=== PATIENT | male | born 1955 | race Caucasian/White ===

== ENCOUNTER 2020-09-09 06:51 | Outpatient (NON) | payer OTHER, SELFPAY ==
[2020-09-09 17:23] LABS: SARS-CoV-2 RNA PCR Positive
== END 2020-09-09 06:52 ==
PROVIDERS: PCP Family Medicine; Visit Provider Family Medicine
DX: U07.1 COVID-19 (principal)
CPT/HCPCS: 87635; C9803; U0003

== ENCOUNTER 2024-09-29 10:16 | Outpatient (CLI) | payer MEDICARE, OTHER, SELFPAY ==
--- NOTE | ~2024-09-29 | XR_ITS ---
XR wrist RT 2V Ordering provider: Jimena Gonzalez PA-C History: . injury 4 years ago pain across all metacarpals . Comparison: None. FINDINGS: BONES: No acute fracture or dislocation. No definite scaphoid fracture. JOINT SPACES: Mild osteoarthritic changes of the first carpometacarpal joint. SOFT TISSUES: Normal. IMPRESSION: No acute osseous abnormality right wrist. Reviewed, dictated and finalized at location A. BORER
--- NOTE | ~2024-09-29 | XR_ITS ---
XR hand RT 2V Ordering provider: Jimena Gonzalez PA-C History: . injury 4 years ago pain across all metacarpals . Comparison: None. FINDINGS: BONES: No acute fracture or dislocation. JOINT SPACES: Normal. SOFT TISSUES: Normal. IMPRESSION: No acute osseous abnormality right hand. Reviewed, dictated and finalized at location A. EHAND
== END 2024-09-29 10:17 | disposition home or self-care (01) ==
PROVIDERS: PCP Family Medicine; Visit Provider Student in an Organized Health Care Education/Training Program
DX: M25.531 Pain in right wrist (principal); M25.541 Pain in joints of right hand
CPT/HCPCS: 73100; 73120

== ENCOUNTER 2024-10-19 10:24 | Outpatient (CLI) | payer MEDICARE, OTHER, SELFPAY ==
--- NOTE | ~2024-10-19 | XR_ITS ---
Supine and upright views of the abdomen Clinical history: Abdominal pain, history kidney stone Findings: Bowel gas pattern is nonspecific. No evidence for obstruction or free air. Prominent stool noted. 2 roughly symmetrical ovoid densities in left upper quadrant may be ingested material. No adrianne l stones evident Impression: Constipation. 2 relatively dense cylindrical structures in the left upper quadrant could reflect ingested material. Correlate for any possible foreign body ingestion. Reviewed, dictated and finalized at location M. 3RD PRESSMAN Impression: Constipation. 2 relatively dense cylindrical structures in the left upper quadrant could refl ect ingested material. Correlate for any possible foreign body ingestion.
--- OUTSIDE RECORDS SUMMARY | 2024-10-23 22:54 | XMS_ITS | Encounter Summary ---
Author Organization [facility] Address [address] [place] [address]. [place] [address] [place] [address] Care Team Providers Care Paper Cap Machine Operator Name Role Phone Tin Chan MD Primary Care Provider [phone] Reason for Visit * Auth/Cert Specialty Diagnoses / Procedures Referred By Poonam andrade Referred To Contact Diagnoses Cataract h25.12 Procedures REMV CATARACT EXTRACAP,INSERT LENS CATARACT REMOVAL WITH IOL IMPLANT Referral ID Status Reason Start Date Expiration Date Visits Re quested Visits Authorized [id number] 1 1 Encounter Details Date Type Department Care Team (Latest Contact Info) Description 10/03/2021 8:03 AM TOXICOLOGIST - 10/03/2021 9:56 AM TOXICOLOGIST Hospital Encounter [facility] [address] [place] [address] Art Bledsoe MD [address] [facility] [address] [id number] Discharge Disposition: Home or Self Care (Routine Discharge) Social History Tobacco Use Types Packs/Day Years Used Date Smoking Tobacco: Former Smokeless Tobacco: Never Alcohol Use Standard Drinks/Week Comments Not Currently 0 (1 standard drink = 0.6 oz pur e alcohol) Sex and Gender Information Value Date Recorded Sex Assigned at Not on file Legal Sex Male 2:59 PM TOXICOLOGIST Gender Identity Not on file Sexual Orientation Not on file COVID-19 Exposure Response Date Recorded In the last month, have you been in contact with someone who was confirmed or suspected to have Coronavirus / COVID-19? No / Unsure 10/03/2021 8:11 AM TOXICOLOGIST documented as of this encounter Last Filed Vital Signs Vital Sign Reading Time Taken Comments Blood Pressure 114/72 10/03/2021 9:39 AM TOXICOLOGIST Pulse 73 10/03/2021 9:39 AM TOXICOLOGIST Temperature 35.9 ??C (96.7 ??F) 10/03/2021 9:39 AM CS T Respiratory Rate 18 10/03/2021 9:39 AM TOXICOLOGIST Oxygen Saturation 95% 10/03/2021 9:39 AM TOXICOLOGIST Inhaled Oxygen Concentration - - Weight 113.4 kg (250 lb) 10/03/2021 8:32 AM TOXICOLOGIST Height 188 cm (6' 2 ) 10/03/2021 8:32 AM TOXICOLOGIST Body Mass Index 32.1 10/03/2021 8:32 AM TOXICOLOGIST documented in this encounter Discharge Instructions * Discharge Instructions* Ramiro Domingo RN - 10/03/2021 9:31 AM TOXICOLOGIST [facility] POST-OP INSTRUCTIONS FOLLOWING CATARACT SURGERY 1. You will be sent home from surgery with a patch over your eye. DO NOT REMOVE THE PATCH FOR ANY REASON. Dr. Bledsoe will remove the patch at your 1st Post-Op (The day of surgery or the next day) and instruct you on how to use your eye drops. 2. SLEEP ON YOUR BACK OR EITHER SIDE. The night after surgery DO NOT SLEEP FACE DOWN . 3. DO NOT RUB OR PRESS ON YOUR EYE. Blot underneath or at the corner of your eye. 4. PROTECT YOUR EYE WHEN YOU NAP DURING THE DAY OR SLEEP AT NIGHT FOR 10 DAYS FOLLOWING SURGERY. Use the clear plastic shield (found in your surgery kit). Place the shield over the eye with paper tape across it to hold the shield in place. 5. LIMIT BENDING MUCH POSSIBLE AND KEEP HEAD FROM A DEPENDENT POSITION. Instead, bend your knees. You may want to hold onto a chair etc. To help keep your balance. 6. DO NOT LIFT ANYTHING OVER 20 POUNDS FOR 2 WEEKS. 7. DO NOT DO ANY STRENUOUS WORK OR EXERCISE FOR 2 WEEKS. For example: Where you strain or break a sweat. 8. DO NOT GET SOAP IN YOUR EYES. When you shower and shampoo. 9. DO NOT WEAR EYE MAKEUP OR USE CREAMS OR LOTIONS around your eyes for 2 weeks. 10. YOU MAY DRIVE WHEN YOUR VISION PERMITS. Ask you doctor. You must have a bookmobile driver for the day of surgery and your 1st post op exam. 11. ALWAYS WERE SUNGLASSES WHEN YOU GO OUTSIDE. These are found in your surgery kit. Dr. Bledsoe OFFICE [phone] AFTER HOURS EMERGENCY [phone] COLOGIST * Attachments The following attachments cannot be sent through Care Everywhere. * Cataracts Discharge Instructions (Estonian) documented in this encounter Medications at Time of Discharge aspirin EC (ASPIRIN EC) 81 MG tablet Take 81 mg by mouth daily. empagliflozin 25 MG tablet Take 25 mg by mouth daily. insulin glargine 100 UNIT/ML injection (PEN) Inject 20 Units into the skin nightly at bedtime. metFORMIN 1000 MG tablet Take 2,000 mg by mouth daily. omeprazole 10 MG capsule Take 10 mg by mouth daily. semaglutide 2 MG/1.5ML injection (PEN) Inject into the skin every 7 days. documented as of this encounter OR Notes * Op Note - Art Bledsoe MD - 10/03/2021 8:37 AM CST Date: 10/03/2021 Patient Name: Derick Murphy : 1955 Surgeon: ART BLEDSOE M.D. Preoperative Diagnosis: Cataract Left Postoperative Diagnosis: Cataract Left Name of Operation: Cataract Extraction (by Phacoemulsification) and Intraocular Lens Implant Anesthesia: Topical Specimen: None Description of Procedure: The eye was anesthetized with topical 0.75% bupivacaine. After intravenous sedation and placement of monitors, the patient was prepped and draped in the usual sterile manner. A lid speculum was placed. A paracentesis was made, and preservative free 1% lidocaine was instilled in the anterior chamber. The anterior chamber was then filled with Viscoat viscoelastic. A miko keratome was used to create the wound. Continuous tear anterior capsulotomy was performed. The lens was hydro dissected before being removed with phacoemulsification. The remaining lenticular cortexwas removed with aspiration. The capsular bag was polished and filled with viscoelastic material. An intraocular lens was chosen, inspected, irrigated and placed within the capsular bag where it was seen to be centered and stable. The viscoelastic material was aspirated. The wound was closed and found to be watertight. Betadine and antibiotic drops were placed in the eye. The speculum was removed. A Garay shield was applied. The patient tolerated the procedure well and left the operating room in satisfactory condition. Art Bledsoe MD COLOGIST documented in this encounter Plan of Treatment Not on file documented as of this encounter Procedures Procedure Name Priority Date/Time Associated Diagnosis Comments REMV CATARACT EXTRACAP,INSERT LENS 10/03/2021 9:12 AM TOXICOLOGIST Cataract Special Needs 0800 documented in this encounter Visit Diagnoses Not on filedocumented in this encounter Administered Medications Inactive Administered Medications - up to 3 most recent administrations Medication Order MAR Action Action Date Dose Rate Site besifloxacin (BESIVANCE) 0.6 % ophthalmic suspension 1 drop 1 drop, Left Eye, Every 5 min, 3 doses, First dose on Sun10/03/21 at 0845, Last dose on Sun10/03/21 at 0855, Instill to operative eye, Pre-Op Given 10/03/2021 8:49 AM TOXICOLOGIST 1 drop Given 10/03/2021 8:39 AM TOXICOLOGIST 1 drop Given 10/03/2021 8:32 AM TOXICOLOGIST 1 drop BUpivacaine (PF) (MARCAINE) 0.5 % injection 0.1 mL 0.1 mL, Left Eye, Every 5 min, 3 doses, First dose on Sun10/03/21 at 0845, Last dose on Sun10/03/21 at 0855, Instill to operative eye, Pre-Op Given 10/03/2021 8:48 AM TOXICOLOGIST 0.1 mLs Given 10/03/2021 8:38 AM TOXICOLOGIST 0.1 mLs Given 10/03/2021 8:31 AM TOXICOLOGIST 0.1 mLs flurbiprofen (OCUFEN) 0.03 % ophthalmic solution 1 drop 1 drop, Left Eye, Every 5 min, 3 doses, First dose on Sun10/03/21 at 0845, Last dose on Sun10/03/21 at 0855, Instill to operative eye, Pre-Op Given 10/03/2021 8:49 AM TOXICOLOGIST 1 drop Given 10/03/2021 8:39 AM TOXICOLOGIST 1 drop Given 10/03/2021 8:32 AM TOXICOLOGIST 1 drop methazolAMIDE (NEPTAZANE) tablet 50 mg 50 mg, Oral, Once, 1 dose, On Sun10/03/21 at 1000, If NOT allergic to Sulfa, Post-Op Given 10/03/2021 9:49 AM TOXICOLOGIST 50 m g phenylephrine (MYDFRIN) 2.5 % ophthalmic solution 1 drop 1 drop, Left Eye, Every 5 min, 3 doses, First dose on Sun10/03/21 at 0845, Last dose on Sun10/03/21 at 0855, Instill to operative eye, Pre-Op Given 10/03/2021 8:48 AM TOXICOLOGIST 1 drop Given 10/03/2021 8:38 AM TOXICOLOGIST 1 drop Given 10/03/2021 8:32 AM TOXICOLOGIST 1 drop tropicamide (MYDRIACYL) 1 % ophthalmic solution 1 drop 1 drop, Left Eye, Every 5 min, 2 doses, First dose on Sun10/03/21 at 0845, Last dose on Sun10/03/21 at 0850, Instill to operative eye, Pre-Op Given 10/03/2021 8:39 AM TOXICOLOGIST 1 drop Given 10/03/2021 8:32 AM TOXICOLOGIST 1 drop documented in this encounter Active and Recently Administered Medications Times are shown in TOXICOLOGIST. Scheduled Medication Order 10/01/2021 2021 10/03/2021 besifloxacin (BESIVANCE) 0.6 % ophthalmic suspension 1 drop (COMPLETED) 1 drop, Left Eye, Every 5 min, 3 doses, First dose on Sun10/03/21 at 0845, Last dose on Sun10/03/21 at 0855, Instill to operative eye, Pre-Op 0832 (Given - Provid er: Suzette Mobley RN)0839 (Given - Provider: Suzette Mobley RN)0849 (Given - Provider: Suzette Mobley, NAVYA) BUpivacaine (PF) (MARCAINE) 0.5 % injection 0.1 mL (COMPLETED) 0.1 mL, Left Eye, Every 5 min, 3 doses, First dose on Sun10/03/21 at 0845, Last dose on Sun10/03/21 at 0855, Instill to operative eye, Pre-Op 0831 (Given - Provid er: Suzette Mobley RN)0838 (Given - Provider: Suzette Mobley RN)0848 (Given - Provider: Suzette Mobley RN) flurbiprofen (OCUFEN) 0.03 % ophthalmic solution 1 drop (COMPLETED) 1 drop, Left Eye, Every 5 min, 3 doses, First dose on Sun10/03/21 at 0845, Last dose on Sun10/03/21 at 0855, Instill to operative eye, Pre-Op 0832 (Given - Provid er: Suzette Mobley RN)0839 (Given - Provider: Suzette Mobley RN)0849 (Given - Provider: Suzette Mobley RN) methazolAMIDE (NEPTAZANE) tablet 50 mg (COMPLETED) 50 mg, Oral, Once, 1 dose, On Sun10/03/21 at 1000, If NOT allergic to Sulfa, Post-Op 0949 (Given - Provid er: Ramiro Domingo RN) phenylephrine (MYDFRIN) 2.5 % ophthalmic solution 1 drop (COMPLETED) 1 drop, Left Eye, Every 5 min, 3 doses, First dose on Sun10/03/21 at 0845, Last dose on Sun10/03/21 at 0855, Instill to operative eye, Pre-Op 0832 (Given - Provid er: Suzette Mobley RN)0838 (Given - Provider: Suzette Mobley RN)0848 (Given - Provider: Suzette Mobley RN) tropicamide (MYDRIACYL) 1 % ophthalmic solution 1 drop (COMPLETED) 1 drop, Left Eye, Every 5 min, 2 doses, First dose on Sun10/03/21 at 0845, Last dose on Sun10/03/21 at 0850, Instill to operative eye, Pre-Op 0832 (Given - Provid er: Suzette Mobley RN)0839 (Given - Provider: Suzette Mobley RN) PRN Medication Order 10/01/2021 2021 10/03/2021 apraclonidine (IOPIDINE) 0.5 % ophthalmic solution (CANCELED) As needed, Starting on Sun10/03/21 at 0925, Until Sun10/03/21 at 0932, Intra-Op 0925 (Given - Provid er: Art Bledsoe MD) EPINEPHrine 0.3 mg in balanced salts (BSS) irrigation solution (CANCELED) As needed, Starting on Sun10/03/21 at 0925, Until Sun10/03/21 at 0932, Intra-Op 924 (Given - Provid er: Art Bledsoe MD) lidocaine (PF) (XYLOCAINE) 1 % injection (CANCELED) As needed, Starting on Sun10/03/21 at 0925, Until Sun10/03/21 at 0932, Intra-Op 09 (Given - Provid er: Art Bledsoe MD) lidocaine 1%-phenylephrine 1.5% in BSS ophthalmic injection (CANCELED) As needed, Starting on Sun10/03/21 at 0925, Until Sun10/03/21 at 0932, Intra-Op 924 (Given - Provid er: Art Bledsoe MD) moxifloxacin (VIGAMOX) 0.5 % ophthalmic solution (CANCELED) As needed, Starting on Sun10/03/21 at 0925, Until Sun10/03/21 at 0932, Intra-Op 924 (Given - Provid er: Art Bledsoe MD) povidone-iodine (BETADINE) 5 % ophthalmic solution (CANCELED) As needed, Starting on Sun10/03/21 at 0925, Until Sun10/03/21 at 0932, Intra-Op 09 (Given - Provid er: Art Bledsoe MD) documented in this encounter Care Teams Paper Cap Machine Operator Relationship Specialty Start Date End Date Tin Chan MD [address] [place] [address] PCP - General FAMILY PRACTICE 10/03/21 documented as of this encounter
--- OUTSIDE RECORDS SUMMARY | 2024-10-23 22:54 | XMS_ITS | Encounter Summary ---
Author Organization [facility] Address [address] [place] [address]. [place] [address] [place] [address] Care Team Providers Care Salesman/Owner Name Role Phone Tin Chan MD Primary Care Provider [phone] Reason for Visit * Auth/Cert Specialty Diagnoses / Procedures Referred By Poonam t Referred To Contact Diagnoses Cataract h25.12 Procedures REMV CATARACT EXTRACAP,INSERT LENS CATARACT REMOVAL WITH IOL IMPLANT Referral ID Status Reason Start Date Expiration Date Visits Re quested Visits Authorized [id number] 1 1 Encounter Details Date Type Department Care Team (Late st Contact Info) Description 10/03/2021 9:27 AM CRIME PREVENTION WORKER - 10/03/2021 10:06 AM CRIME PREVENTION WORKER Surgery [facility] [address] [place] [address] Art Bledsoe MD [address] [facility] [address] [phone] CATARACT REMOVAL WITH IOL IMPLANT Surgery Details Date/Time Status Location OR Service Patient Class Case Class Case Type Trauma Case? 10/03/2021 9:27 AM Posted [facility] OR OR 2 Ophthalmology Short Stay/Outpa tient Surgery E - Elective No Panel 1 Procedure LRB Anes Op Region Wound Class Comments CATARACT REMOVAL WITH IOL IMPLANT Left Monitor Anesthesia Care Eye Clean Surgeon Surgeon Role Service Panel Art Bledsoe MD Primary Ophthalmology 1 Special Needs 0800 documented in this encounter Social History Tobacco Use Types Packs/Day Years Used Date Smoking Tobacco: Former Smokeless Tobacco: Never Alcohol Use Standard Drinks/Week Comments Not Currently 0 (1 standard drink = 0.6 oz pur e alcohol) Sex and Gender Information Value Date Recorded Sex Assigned at Not on file Legal Sex Male 2:59 PM CRIME PREVENTION WORKER Gender Identity Not on file Sexual Orientation Not on file COVID-19 Exposure Response Date Recorded In the last month, have you been in contact with someone who was confirmed or suspected to have Coronavirus / COVID-19? No / Unsure 10/03/2021 8:11 AM CRIME PREVENTION WORKER documented as of this encounter Last Filed Vital Signs Vital Sign Reading Time Taken Comments Blood Pressure 114/72 10/03/2021 9:39 AM CRIME PREVENTION WORKER Pulse 73 10/03/2021 9:39 AM CRIME PREVENTION WORKER Temperature 35.9 ??C (96.7 ??F) 10/03/2021 9:39 AM CS T Respiratory Rate 18 10/03/2021 9:39 AM CRIME PREVENTION WORKER Oxygen Saturation 95% 10/03/2021 9:39 AM CRIME PREVENTION WORKER Inhaled Oxygen Concentration - - Weight 113.4 kg (250 lb) 10/03/2021 8:32 AM CRIME PREVENTION WORKER Height 188 cm (6' 2 ) 10/03/2021 8:32 AM CRIME PREVENTION WORKER Body Mass Index 32.1 10/03/2021 8:32 AM CRIME PREVENTION WORKER documented in this encounter Discharge Instructions * Discharge Instructions* Ramiro Domingo RN - 10/03/2021 9:31 AM CRIME PREVENTION WORKER Kay [facility] POST-OP INSTRUCTIONS FOLLOWING [...] Ask you doctor. You must have a limb driver for the day of surgery and your 1st post op exam. 11. ALWAYS WERE SUNGLASSES WHEN YOU GO OUTSIDE. These are found in your surgery kit. Dr. Bledsoe OFFICE [phone] AFTER HOURS EMERGENCY [phone] E PREVENTION WORKER * Attachments The following attachments cannot be sent through Care Everywhere. * Cataracts Discharge Instructions (Ghanaian) documented in this encounter Medications at Time [...] AM CST Date: 10/03/2021 Patient Name: Derick Bia Murphy Jr. : 1955 Surgeon: ART BLEDSOE M.D. Preoperative [...] room in satisfactory condition. Art Bledsoe MD E PREVENTION WORKER documented in this encounter Plan of Treatment Not on file documented as of this encounter Procedures Procedure Name Priority Date/Time Associated Diagnosis Comments REMV CATARACT EXTRACAP,INSERT LENS 10/03/2021 9:12 AM CRIME PREVENTION WORKER Cataract Special Needs 0800 documented in this encounter Visit Diagnoses Diagnosis Cataract Unspecified cataract documented in this encounter Administered Medications Inactive Administered Medications - up to 3 most recent administrations Medication Order MAR Action Action Date Dose Rate Site apraclonidine (IOPIDINE) 0.5 % ophthalmic solution As needed, Starting on Sun10/03/21 at 0925, Until Sun10/03/21 at 0932, Intra-Op Given 10/03/2021 9:25 AM CRIME PREVENTION WORKER 1 drop besifloxacin (BESIVANCE) 0.6 % ophthalmic suspension 1 drop 1 drop, Left Eye, Every 5 min, 3 doses, First dose on Sun10/03/21 at 0845, Last dose on Sun10/03/21 at 0855, Instill to operative eye, Pre-Op Given 10/03/2021 8:49 AM CRIME PREVENTION WORKER 1 drop Given 10/03/2021 8:39 AM CRIME PREVENTION WORKER 1 drop Given 10/03/2021 8:32 AM CRIME PREVENTION WORKER 1 drop BUpivacaine (PF) (MARCAINE) 0.5 % injection 0.1 mL 0.1 mL, Left Eye, Every 5 min, 3 doses, First dose on Sun10/03/21 at 0845, Last dose on Sun10/03/21 at 0855, Instill to operative eye, Pre-Op Given 10/03/2021 8:48 AM CRIME PREVENTION WORKER 0.1 mLs Given 10/03/2021 8:38 AM CRIME PREVENTION WORKER 0.1 mLs Given 10/03/2021 8:31 AM CRIME PREVENTION WORKER 0.1 mLs EPINEPHrine 0.3 mg in balanced salts (BSS) irrigation solution As needed, Starting on Sun10/03/21 at 0925, Until Sun10/03/21 at 0932, Intra-Op Given 10/03/2021 9:25 AM CRIME PREVENTION WORKER 500 mLs Left Eye flurbiprofen (OCUFEN) 0.03 % ophthalmic solution 1 drop 1 drop, Left Eye, Every 5 min, 3 doses, First dose on Sun10/03/21 at 0845, Last dose on Sun10/03/21 at 0855, Instill to operative eye, Pre-Op Given 10/03/2021 8:49 AM CRIME PREVENTION WORKER 1 drop Given 10/03/2021 8:39 AM CRIME PREVENTION WORKER 1 drop Given 10/03/2021 8:32 AM CRIME PREVENTION WORKER 1 drop lidocaine (PF) (XYLOCAINE) 1 % injection As needed, Starting on Sun10/03/21 at 0925, Until Sun10/03/21 at 0932, Intra-Op Given 10/03/2021 9:25 AM CRIME PREVENTION WORKER 1 mL Left Eye lidocaine 1%-phenylephrine 1.5% in BSS ophthalmic injection As needed, Starting on Sun10/03/21 at 0925, Until Sun10/03/21 at 0932, Intra-Op Given 10/03/2021 9:25 AM CRIME PREVENTION WORKER 1 mL methazolAMIDE (NEPTAZANE) tablet 50 mg 50 mg, Oral, Once, 1 dose, On Sun10/03/21 at 1000, If NOT allergic to Sulfa, Post-Op Given 10/03/2021 9:49 AM CRIME PREVENTION WORKER 50 mg moxifloxacin (VIGAMOX) 0.5 % ophthalmic solution As needed, Starting on Sun10/03/21 at 0925, Until Sun10/03/21 at 0932, Intra-Op Given 10/03/2021 9:25 AM CRIME PREVENTION WORKER 1 drop phenylephrine (MYDFRIN) 2.5 % ophthalmic solution 1 drop 1 drop, Left Eye, Every 5 min, 3 doses, First dose on Sun10/03/21 at 0845, Last dose on Sun10/03/21 at 0855, Instill to operative eye, Pre-Op Given 10/03/2021 8:48 AM CRIME PREVENTION WORKER 1 fletcher p Given 10/03/2021 8:38 AM CRIME PREVENTION WORKER 1 drop Given 10/03/2021 8:32 AM CRIME PREVENTION WORKER 1 drop povidone-iodine (BETADINE) 5 % ophthalmic solution As needed, Starting on Sun10/03/21 at 0925, Until Sun10/03/21 at 0932, Intra-Op Given 10/03/2021 9:25 AM CRIME PREVENTION WORKER 2 drops tropicamide (MYDRIACYL) 1 % ophthalmic solution 1 drop 1 drop, Left Eye, Every 5 min, 2 doses, First dose on Sun10/03/21 at 0845, Last dose on Sun10/03/21 at 0850, Instill to operative eye, Pre-Op Given 10/03/2021 8:39 AM CRIME PREVENTION WORKER 1 drop Given 10/03/2021 8:32 AM CRIME PREVENTION WORKER 1 drop documented in this encounter Active and Recently Administered Medications Times are shown in CRIME PREVENTION WORKER. Scheduled Medication Order 10/01/2021 2021 10/03/2021 besifloxacin [...] Suzette Mobley RN)0838 (Given - Provider: Suzette Mobley, NAVYA)0848 (Given - Provider: Suzette Mobley, NAVYA) flurbiprofen (OCUFEN) 0.03 % ophthalmic solution 1 [...] MD) documented in this encounter Care Teams Salesman/Owner Relationship Specialty Start Date End Date Tin Chan MD [address] [place] [address] PCP - General FAMILY PRACTICE 10/03/21 documented as of this encounter
--- OUTSIDE RECORDS SUMMARY | 2024-10-23 22:54 | XMS_ITS | Encounter Summary ---
Author Organization [facility] Address [address] [place] [address]. [place] [address] [place] [address] Care Team Providers Care Metal Handler Name Role Phone Tin Chan MD Primary Care Provider [phone] Reason for Visit * Auth/Cert Specialty Diagnoses / Procedures Referred By Poonam andrade Referred To Contact Diagnoses Cataract h25.12 Procedures REMV CATARACT EXTRACAP,INSERT LENS CATARACT REMOVAL WITH IOL IMPLANT Referral ID Status Reason Start Date Expiration Date Visits Re quested Visits Authorized [id number] 1 1 Encounter Details Date Type Department Care Team (Late st Contact Info) Description 10/03/2021 9:10 AM FINANCE MGR Anesthesia Event [facility] [address] [place] [address] Kayla Gutierrez CRNA [address] [place] [address] Anesthesia Record Procedure Summary Procedure Name Responsible Anesthesiologist Anesthesia Start Time Anesthesia Stop Time CATARACT REMOVAL WITH IOL IMPLANT (Left: Eye) Kayla Gutierrez CRNA 10/03/21 0910 10/03/21 0929 Events Date Time Event Comment 10/03/2021 0835 0835 AN PARAPROFESSIONAL EDUCATION ASSISTANT Prepped 0910 An Start Patient ID and consent checked and patient reassessed. 0910 An Start Data 0910 AN Immediate Reassess The pa tient was reevaluated immediately before sedation or regional anesthesia. 0910 Anesthesia Ready 0929 An Stop 0929 an stop data 0930 Post Anesthetic Care Handoff I completed my handoff to the receiving nurse during which we: 1. Identified the patient 2. Identified the responsible provider 3. Reviewed the pertinent medical history 4. Discussed the surgical course 5. Reviewed intra-op anesthesia management and issues during anesthesia 6. Set expectations for post-procedure period 7. Allowed opportunity for questions and acknowledgement of understanding. Meds Name Total midazolam 2 mg/2 mL injection 2 mg * Agents Name O2 * Blood No blood administrations on file. Lines, Drains, and Airways Type Details Placement Removal Peripheral IV Placement Date: 10/03/21; Placement Time: 851; Placed Outside of This Facility?: No; Size: 20 G; Orientation: Right; Location: Hand; Site Prep: Chlorhexidine; Local Anesthetic: None; Inserted By: Suzette MENDOSA; Insertion attempts: 1; Ultrasound-guided Placement?: No; Patient Tolerance: Tolerated well; Removal Date: 10/03/21; Removal Time: 931; Removal Reason: Patient Discharged 10/03/21851 by Suzette Mobley RN 10/03/21931 by Ramiro Domingo RN Surgical/Incision 10/03/21; 921; Surgical Wound; Eye; Left; SHIELD EYE ADULT, TAPE PAPER 1 ; 10/03/21; 1156 10/03/21921 by Karlene Philip RN 10/03/21 115 by Automatic Discharge Provider documented in this encounter Social History Tobacco Use Types Packs/Day Years Used Date Smoking Tobacco: Former Smokeless Tobacco: Never Alcohol Use Standard Drinks/Week Comments Not Currently 0 (1 standard drink = 0.6 oz pur e alcohol) Sex and Gender Information Value Date Recorded Sex Assigned at Not on file Legal Sex Male 2:59 PM FINANCE MGR Gender Identity Not on file Sexual Orientation Not on file COVID-19 Exposure Response Date Recorded In the last month, have you been in contact with someone who was confirmed or suspected to have Coronavirus / COVID-19? No / Unsure 10/03/2021 8:11 AM FINANCE MGR documented as of this encounter OR Notes * Anesthesia Postprocedure Evaluation - Kayla Gutierrez CRNA - 10/03/2021 9:30 AM CST Anesthesia Post-op Note Derick Murphy Jr. Procedure(s): CATARACT REMOVAL WITH IOL IMPLANT (Left Eye) Anesthesia type: MAC Vitals: 10/03/21 08 BP: (!) 155/81 Vitals: 11/29/21 0832 Pulse: 70 Vitals: 10/03/21 0832 Resp: 20 Vitals: 10/03/21 0832 Temp: 36.9 ??C Vitals: 10/03/21 0832 SpO2: 97% Patient Location: Phase II/Outpatient Level of Consciousness: awake, alert and oriented Pain Management: adequate analgesia Airway Patency: patent Respiratory Status: acceptable Cardiovascular Status: acceptable Post-Op Nausea: none Postoperative Hydration: euvolemic There were no known complications for this encounter. NCE MGR * Anesthesia Preprocedure Evaluation - Kayla Gutierrez CRNA - 09/26/2021 11:44 AM CST Anesthesia ROS/MED History Reviewed: Patient summary , Nursing notes , Family history anesthesia, Anesthesia history , Medications Pre-Anesthetic State: alert, awake and responds appropriately Pulmonary (+) sleep apnea Cardiovascular Exercise tolerance:good Neuro/Psych GI/Hepatic/Renal Endo/Other (+) diabetes mellitus, obese Physical Evaluation Airway Mallampati: II TM Distance: >3 FB Neck ROM: normal Dental No notable dental history Pulmonary Breath sounds clear to auscultation Cardiovascular Rhythm: regular Rate: normal Anesthesia Plan ASA 2 Intravenous Induction Anesthesia type: MAC Informed Consent Anesthetic plan and risks discussed with patient of whom consent was obtained. . Cosigned by Art Small MD at 10/03/2021 9:42 AM FINANCE MGR NCE MGR NCE MGR NCE MGR NCE MGR documented in this encounter Plan of Treatment Not on file documented as of this encounter Visit Diagnoses Not on filedocumented in this encounter Administered Medications Inactive Administered Medications - up to 3 most recent administrations Medication Order MAR Action Action Date Dose Rate Site midazolam (VERSED) injection Intravenous, PRN, Starting on Sun10/03/21 at 0910, Until Sun10/03/21 at 0929, Anesthesia Intra-Op Given 10/03/2021 9:14 AM FINANCE MGR 1 mg Given 10/03/2021 9:10 AM FINANCE MGR 1 mg documented in this encounter Care Teams Metal Handler Relationship Specialty Start Date End Date Tin Chan MD [address] [address] [address] [place] [address] PCP - General FAMILY PRACTICE 10/03/21 documented as of this encounter
--- OUTSIDE RECORDS SUMMARY | 2024-10-23 22:54 | XMS_ITS | Encounter Summary ---
Author Organization [facility] Address [address] [place] [address]. [place] [address] [place] [address] Care Team Providers Care Hotel Clerk Name Role Phone Tin Chan MD Primary Care Provider [phone] Reason for Visit * Auth/Cert Specialty Diagnoses / Procedures Referred By Poonam andrade Referred To Contact Diagnoses H25.11 Procedures REMV CATARACT EXTRACAP,INSERT LENS RIGHT CATARACT REMOVAL WITH IOL IMPLANT Referral ID Status Reason Start Date Expiration Date Visits Re quested Visits Authorized [id number] 1 1 Encounter Details Date Type Department Care Team (Late st Contact Info) Description 12/05/2021 7:30 AM FACULTY HEAD Anesthesia Event [facility] [address] [place] [address] Carol Ann Jose CRNA [address] [place] [id number] Tj Page CRNA [address] [place] [address] Anesthesia Record Procedure Summary Procedure Name Responsible Anesthesiologist Anesthesia Start Time Anesthesia Stop Time RIGHT CATARACT REMOVAL WITH IOL IMPLANT (Right: Eye) Carol Ann Jose CRNA 12/05/21 0730 12/05/21 0756 Events Date Time Event Comment 12/05/2021 [address] MAGISTRATE Prepped 0730 An Start Patient ID and consent checked and patient reassessed. 0730 An Start Data 0732 AN Immediate Reassess The pa tient was reevaluated immediately before sedation or regional anesthesia. 0732 Nasal Cannula Applied 0735 Anesthesia Ready 0755 Nasal Cannula Removed 0756 an stop data 0756 An Stop 0756 Post Anesthetic Care Handoff I completed my handoff to the receiving nurse during which we: 1. Identified the patient 2. Identified the responsible provider 3. Reviewed the pertinent medical history 4. Discussed the surgical course 5. Reviewed intra-op anesthesia management and issues during anesthesia 6. Set expectations for post-procedure period 7. Allowed opportunity for questions and acknowledgement of understanding. Meds Name Total sodium chloride 0.9 % flush 5 mL midazolam 2 mg/2 mL injection 2 mg * Agents Name O2 * Blood No blood administrations on file. Lines, Drains, and Airways Type Details Placement Removal Peripheral IV Orientation: Right; Location: Hand; Site Prep: Chlorhexidine; Inserted By: NAVYA powell; Insertion attempts: 1; Ultrasound-guided Placement?: No; Patient Tolerance: Tolerated well; Removal Date: 12/05/21; Removal Time: 08; Removal Reason: Patient Discharged 12/05/21 0718 by 12/05/21 0816 by Ramiro Domingo RN Surgical/Incision 12/05/21; 0745; Surgical Wound; Eye; Right; SHIELD EYE ADULT, TAPE PAPER 1 ; 12/05/21; 1018 12/05/21 0745 by Karlene Philip RN 12/05/21 1018 by Automatic Discharge Provider documented in this encounter Social History Tobacco Use Types Packs/Day Years Used Date Smoking Tobacco: Former Smokeless Tobacco: Never Alcohol Use Standard Drinks/Week Comments Not Currently 0 (1 standard drink = 0.6 oz pur e alcohol) Sex and Gender Information Value Date Recorded Sex Assigned at Not on file Legal Sex Male 2:59 PM FACULTY HEAD Gender Identity Not on file Sexual Orientation Not on file COVID-19 Exposure Response Date Recorded In the last month, have you been in contact with someone who was confirmed or suspected to have Coronavirus / COVID-19? No / Unsure 12/05/2021 6:25 AM FACULTY HEAD documented as of this encounter OR Notes * Anesthesia Postprocedure Evaluation - Carol Ann Jose CRNA - 12/05/2021 7:56 AM CST Anesthesia Post-op Note Derick Murphy Jr. Procedure(s): RIGHT CATARACT REMOVAL WITH IOL IMPLANT (Right Eye) Anesthesia type: MAC Vitals: 12/05/21708 BP: 136/74 Vitals: 12/05/21708 Pulse: 61 Vitals: 12/05/21708 Resp: 18 Vitals: 12/05/21708 Temp: 36.2 ??C Vitals: 12/05/21708 SpO2: 98% Patient Location: Phase II/Outpatient Level of Consciousness: awake Pain Management: adequate analgesia Airway Patency: patent Respiratory Status: acceptable Cardiovascular Status: acceptable Post-Op Nausea: none Postoperative Hydration: euvolemic There were no known complications for this encounter. LTY HEAD * Anesthesia Preprocedure Evaluation - Carol Ann Jose CRNA - 11/30/2021 10:40 AM CST Anesthesia ROS/MED History Reviewed: Patient summary , Nursing notes , Family history anesthesia, Anesthesia history , Medications Pre-Anesthetic State: alert, awake and responds appropriately Pulmonary neg pulmonary ROS (+) sleep apnea Cardiovascular neg cardio ROS Exercise tolerance:good Neuro/Psych neg neuro/psych ROS GI/Hepatic/Renal Endo/Other (+) diabetes mellitus, (well controlled) Physical Evaluation Airway Mallampati: I TM Distance: >3 FB Neck ROM: normal Dental (missing) Pulmonary Pulmonary exam normal Breath sounds clear to auscultation Cardiovascular Rhythm: regular Rate: normal Cardiovascular exam normal Other findings: Missing teeth Upper left. All others intact Anesthesia Plan ASA 2 Intravenous Induction Anesthesia type: MAC Plan for Airway: nasal cannula/simple face mask Informed Consent Anesthetic plan and risks discussed with patient of whom consent was obtained. Consent of blood products not discussed. . Cosigned by Art Small MD at 12/05/2021 7:33 AM FACULTY HEAD LTY HEAD LTY HEAD LTY HEAD documented in this encounter Plan of Treatment Not on file documented as of this encounter Visit Diagnoses Not on filedocumented in this encounter Administered Medications Inactive Administered Medications - up to 3 most recent administrations Medication Order MAR Action Action Date Dose Rate Site midazolam (VERSED) injection Intravenous, PRN, Starting on Sun12/05/21 at 0731, Until Sun12/05/21 at 0756, Anesthesia Intra-Op Given 12/05/2021 7:31 AM FACULTY HEAD 2 mg sodium chloride (PF) 0.9 % flush Intravenous, PRN, Starting on Sun12/05/21 at 0731, Until Sun12/05/21 at 0756, Anesthesia Intra-Op Given 12/05/2021 7:31 AM FACULTY HEAD 5 mLs documented in this encounter Care Teams Hotel Clerk Relationship Specialty Start Date End Date Tin Chan MD [address] [place] [address] PCP - General FAMILY PRACTICE 10/03/21 documented as of this encounter
--- OUTSIDE RECORDS SUMMARY | 2024-10-23 22:54 | XMS_ITS | Encounter Summary ---
Author Organization [facility] Address [address] [place] [address]. [place] [address] [place] [address] Care Team Providers Care Switchboard Operator Name Role Phone Tin Chan MD Primary Care Provider [phone] Reason for Visit * Auth/Cert Specialty Diagnoses / Procedures Referred By Poonam t Referred To Contact Diagnoses H25.11 Procedures REMV CATARACT EXTRACAP,INSERT LENS RIGHT CATARACT REMOVAL WITH IOL IMPLANT Referral ID Status Reason Start Date Expiration Date Visits Re quested Visits Authorized [id number] 1 1 Encounter Details Date Type Department Care Team (Late st Contact Info) Description 12/05/2021 7:30 AM RELEASE COORDINATOR - 12/05/2021 8:08 AM RELEASE COORDINATOR Surgery [facility] [address] [place] [address] Art Bledsoe MD [address] [facility] [address] [place] [phone] RIGHT CATARACT REMOVAL WITH IOL IMPLANT Surgery Details Date/Time Status Location OR Service Patient Class Case Class Case Type Trauma Case? 12/05/2021 7:30 AM Posted [facility] OR OR 2 Ophthalmology Short Stay/Outpat ient Surgery No Panel 1 Procedure LRB Anes Op Region Wound Class Comments RIGHT CATARACT REMOVAL WITH IOL IMPLANT Right Monitor Anesthesia Care Eye Clean Surgeon Surgeon Role Service Panel Art Bledsoe MD Primary Ophthalmology 1 Special Needs 4098 documented in this encounter Social History Tobacco Use Types Packs/Day Years Used Date Smoking Tobacco: Former Smokeless Tobacco: Never Alcohol Use Standard Drinks/Week Comments Not Currently 0 (1 standard drink = 0.6 oz pur e alcohol) Sex and Gender Information Value Date Recorded Sex Assigned at Not on file Legal Sex Male 2:59 PM RELEASE COORDINATOR Gender Identity Not on file Sexual Orientation Not on file COVID-19 Exposure Response Date Recorded In the last month, have you been in contact with someone who was confirmed or suspected to have Coronavirus / COVID-19? No / Unsure 12/05/2021 6:25 AM RELEASE COORDINATOR documented as of this encounter Last Filed Vital Signs Vital Sign Reading Time Taken Comments Blood Pressure 128/67 12/05/2021 8:02 AM RELEASE COORDINATOR Pulse 77 12/05/2021 8:02 AM RELEASE COORDINATOR Temperature 36.2 ??C (97.1 ??F) 12/05/2021 7:09 AM CS T Respiratory Rate 18 12/05/2021 7:09 AM RELEASE COORDINATOR Oxygen Saturation 97% 12/05/2021 8:02 AM RELEASE COORDINATOR Inhaled Oxygen Concentration - - Weight 115.7 kg (255 lb) 12/05/2021 7:09 AM RELEASE COORDINATOR Height 188 cm (6' 2 ) 12/05/2021 7:09 AM RELEASE COORDINATOR Body Mass Index 32.74 12/05/2021 7:09 AM RELEASE COORDINATOR documented in this encounter Discharge Instructions * Discharge Instructions* Ramiro Domingo RN - 12/05/2021 7:29 AM RELEASE COORDINATOR Kay [facility] POST-OP INSTRUCTIONS FOLLOWING [...] Ask you doctor. You must have a company driver for the day of surgery and your 1st post op exam. 11. ALWAYS WERE SUNGLASSES WHEN YOU GO OUTSIDE. These are found in your surgery kit. Dr. Bledsoe OFFICE [phone] AFTER HOURS EMERGENCY [phone] ASE COORDINATOR * Attachments The following attachments cannot be sent through Care Everywhere. * Cataracts Discharge Instructions (Irish) documented in this encounter Medications at Time [...] as of this encounter OR Notes * Pre-Sedation Assessment - Art Bledsoe MD - 12/05/2021 7:29 AM RELEASE COORDINATOR Sedation Pre-Evaluation Assessment Physical Exam ASE COORDINATOR * Op Note - Art Bledsoe MD - 12/05/2021 7:28 AM CST Date: 12/05/2021 Patient Name: Dercik Varelamarissa HollinsO.B.: 1955 Surgeon: ART BLEDSOE M.D. Preoperative Diagnosis: Cataract right Postoperative Diagnosis: Cataract right Name of Operation: Cataract Extraction (by Phacoemulsification) [...] room in satisfactory condition. Art Bledsoe MD ASE COORDINATOR documented in this encounter Plan of Treatment Not on file documented as of this encounter Procedures Procedure Name Priority Date/Time Associated Diagnosis Comments REMV CATARACT EXTRACAP,INSERT LENS 12/05/2021 7:30 AM RELEASE COORDINATOR H25.11 Special Needs 0630 documented in this encounter Visit Diagnoses Not on filedocumented in this encounter Administered Medications Inactive Administered Medications - up to 3 most recent administrations Medication Order MAR Action Action Date Dose Rate Site apraclonidine (IOPIDINE) 0.5 % ophthalmic solution As needed, Starting on Sun12/05/21 at 0750, Until Sun12/05/21 at 0757, Intra-Op Given 12/05/2021 7:50 AM RELEASE COORDINATOR 1 drop besifloxacin (BESIVANCE) 0.6 % ophthalmic suspension 1 drop 1 drop, Right Eye, Every 5 min, 3 doses, First dose on Sun12/05/21 at 0700, Last dose on Sun12/05/21 at 0710, Instill to operative eye, Pre-Op Given 12/05/2021 7:14 AM RELEASE COORDINATOR 1 drop Given 12/05/2021 7:02 AM RELEASE COORDINATOR 1 drop Given 12/05/2021 6:55 AM RELEASE COORDINATOR 1 drop BUpivacaine (PF) (MARCAINE) 0.5 % injection 0.1 mL 0.1 mL, Right Eye, Every 5 min, 3 doses, First dose on Sun12/05/21 at 0700, Last dose on Sun12/05/21 at 0710, Instill to operative eye, Pre-Op Given 12/05/2021 7:14 AM RELEASE COORDINATOR 0.1 mLs Given 12/05/2021 7:03 AM RELEASE COORDINATOR 0.1 mLs Given 12/05/2021 6:54 AM RELEASE COORDINATOR 0.1 mLs EPINEPHrine 0.3 mg in balanced salts (BSS) irrigation solution As needed, Starting on Sun12/05/21 at 0750, Until Sun12/05/21 at 0757, Intra-Op Given 12/05/2021 7:50 AM RELEASE COORDINATOR 500 mLs Right Eye flurbiprofen (OCUFEN) 0.03 % ophthalmic solution 1 drop 1 drop, Right Eye, Every 5 min, 3 doses, First dose on Sun12/05/21 at 0700, Last dose on Sun12/05/21 at 0710, Instill to operative eye, Pre-Op Given 12/05/2021 7:15 AM RELEASE COORDINATOR 1 drop Given 12/05/2021 7:02 AM RELEASE COORDINATOR 1 drop Given 12/05/2021 6:54 AM RELEASE COORDINATOR 1 drop lidocaine (PF) (XYLOCAINE) 1 % injection As needed, Starting on Sun12/05/21 at 0750, Until Sun12/05/21 at 0757, Intra-Op Given 12/05/2021 7:50 AM RELEASE COORDINATOR 1 mL Right Eye lidocaine 1%-phenylephrine 1.5% in BSS ophthalmic injection As needed, Starting on Sun12/05/21 at 0750, Until Sun12/05/21 at 0757, Intra-Op Given 12/05/2021 7:50 AM RELEASE COORDINATOR 1 mL methazolAMIDE (NEPTAZANE) tablet 50 mg 50 mg, Oral, Once, 1 dose, On Sun12/05/21 at 0745, If NOT allergic to Sulfa, Post-Op Given 12/05/2021 8:06 AM RELEASE COORDINATOR 50 mg moxifloxacin (VIGAMOX) 0.5 % ophthalmic solution As needed, Starting on Sun12/05/21 at 0751, Until Sun12/05/21 at 0757, Intra-Op Given 12/05/2021 7:51 AM RELEASE COORDINATOR 1 drop umdixfjy-qfrwxjlkhx-ilcbgaflf (NEOSPORIN) ophthalmic ointment As needed, Starting on Sun12/05/21 at 0751, Until Sun12/05/21 at 0757, Intra-Op Given 12/05/2021 7:51 AM RELEASE COORDINATOR 1 mcg phenylephrine (MYDFRIN) 2.5 % ophthalmic solution 1 drop 1 drop, Right Eye, Every 5 min, 3 doses, First dose on Sun12/05/21 at 0700, Last dose on Sun12/05/21 at 0710, Instill to operative eye, Pre-Op Given 12/05/2021 7:15 AM RELEASE COORDINATOR 1 drop Given 12/05/2021 7:03 AM RELEASE COORDINATOR 1 drop Given 12/05/2021 6:55 AM RELEASE COORDINATOR 1 drop povidone-iodine (BETADINE) 5 % ophthalmic solution As needed, Starting on Sun12/05/21 at 0751, Until Sun12/05/21 at 0757, Intra-Op Given 12/05/2021 7:51 AM RELEASE COORDINATOR 2 drops tropicamide (MYDRIACYL) 1 % ophthalmic solution 1 drop 1 drop, Right Eye, Every 5 min, 2 doses, First dose on Sun12/05/21 at 0700, Last dose on Sun12/05/21 at 0705, Instill to operative eye, Pre-Op Given 12/05/2021 7:03 AM RELEASE COORDINATOR 1 drop Given 12/05/2021 6:55 AM RELEASE COORDINATOR 1 drop documented in this encounter Active and Recently Administered Medications Times are shown in RELEASE COORDINATOR. Scheduled Medication Order 12/03/2021 12/04/2021 12/05/2021 besifloxacin (BESIVANCE) 0.6 % ophthalmic suspension 1 drop 1 drop, Right Eye, Every 5 min, 3 doses, First dose on Sun12/05/21 at 0700, Last dose on Sun12/05/21 at 0710, Instill to operative eye, Pre-Op 0655 (Given - Provid er: Lluvia Hernandez RN)0702 (Given - Provider: Lluvia Hernandez RN)0714 (Given - Provider: Lluvia Hernandez RN) BUpivacaine (PF) (MARCAINE) 0.5 % injection 0.1 mL 0.1 mL, Right Eye, Every 5 min, 3 doses, First dose on Sun12/05/21 at 0700, Last dose on Sun12/05/21 at 0710, Instill to operative eye, Pre-Op 0654 (Given - Provid er: Lluvia Hernandez RN)07 (Given - Provider: Lluvia Hernandez RN)0714 (Given - Provider: Lluvia Hernandez RN) flurbiprofen (OCUFEN) 0.03 % ophthalmic solution 1 drop (COMPLETED) 1 drop, Right Eye, Every 5 min, 3 doses, First dose on Sun12/05/21 at 0700, Last dose on Sun12/05/21 at 0710, Instill to operative eye, Pre-Op 0654 (Given - Provid er: Lluvia Hernandez RN)07 (Given - Provider: Lluvia Hernandez RN)0715 (Given - Provider: Lluvia Hernandez RN) methazolAMIDE (NEPTAZANE) tablet 50 mg (COMPLETED) 50 mg, Oral, Once, 1 dose, On Sun12/05/21 at 0745, If NOT allergic to Sulfa, Post-Op 0806 (Given - Provid er: Ramiro Domingo RN) phenylephrine (MYDFRIN) 2.5 % ophthalmic solution 1 drop (COMPLETED) 1 drop, Right Eye, Every 5 min, 3 doses, First dose on Sun12/05/21 at 0700, Last dose on Sun12/05/21 at 0710, Instill to operative eye, Pre-Op 0655 (Given - Provid er: Lluvia Hernandez RN)07 (Given - Provider: Lluvia Hernandez RN)0715 (Given - Provider: Lluvia Hernandez RN) tropicamide (MYDRIACYL) 1 % ophthalmic solution 1 drop (COMPLETED) 1 drop, Right Eye, Every 5 min, 2 doses, First dose on Sun12/05/21 at 0700, Last dose on Sun12/05/21 at 0705, Instill to operative eye, Pre-Op 0655 (Given - Provid er: Lluvia Hernandez RN)07 (Given - Provider: Lluvia Hernandez RN) PRN Medication Order 12/03/2021 12/04/2021 12/05/2021 apraclonidine (IOPIDINE) 0.5 % ophthalmic solution (CANCELED) As needed, Starting on Sun12/05/21 at 0750, Until Sun12/05/21 at 0757, Intra-Op 0750 (Given - Provid er: Art Bledsoe MD) EPINEPHrine 0.3 mg in balanced salts (BSS) irrigation solution (CANCELED) As needed, Starting on Sun12/05/21 at 0750, Until Sun12/05/21 at 0757, Intra-Op 0750 (Given - Provid er: Art Bledsoe MD) lidocaine (PF) (XYLOCAINE) 1 % injection (CANCELED) As needed, Starting on Sun12/05/21 at 0750, Until Sun12/05/21 at 0757, Intra-Op 0750 (Given - Provid er: Art Bledsoe MD) lidocaine 1%-phenylephrine 1.5% in BSS ophthalmic injection (CANCELED) As needed, Starting on Sun12/05/21 at 0750, Until Sun12/05/21 at 0757, Intra-Op 0750 (Given - Provid er: Art Bledsoe MD) moxifloxacin (VIGAMOX) 0.5 % ophthalmic solution (CANCELED) As needed, Starting on Sun12/05/21 at 0751, Until Sun12/05/21 at 0757, Intra-Op 0751 (Given - Provid er: Art Bledsoe MD) jeldceho-wgkkrrfply-hbqdnkoac (NEOSPORIN) ophthalmic ointment (CANCELED) As needed, Starting on Sun12/05/21 at 0751, Until Sun12/05/21 at 0757, Intra-Op 0751 (Given - Provid er: Art Bledsoe MD) povidone-iodine (BETADINE) 5 % ophthalmic solution (CANCELED) As needed, Starting on Sun12/05/21 at 0751, Until Sun12/05/21 at 0757, Intra-Op 0751 (Given - Provid er: Art Bledsoe MD) documented in this encounter Care Teams Switchboard Operator Relationship Specialty Start Date End Date Tin Chan MD [address] [place] [address] PCP - General FAMILY PRACTICE 10/03/21 documented as of this encounter
--- OUTSIDE RECORDS SUMMARY | 2024-10-23 22:54 | XMS_ITS | Encounter Summary ---
Author Organization [facility] Address [address] [place] [address]. [place] [address] [place] [address] Care Team Providers Care Prison Guard Name Role Phone Tin Chan MD Primary Care Provider [phone] Reason for Visit * Auth/Cert Specialty Diagnoses / Procedures Referred By Poonam t Referred To Contact Diagnoses H25.11 Procedures REMV CATARACT EXTRACAP,INSERT LENS RIGHT CATARACT REMOVAL WITH IOL IMPLANT Referral ID Status Reason Start Date Expiration Date Visits Re quested Visits Authorized [id number] 1 1 Encounter Details Date Type Department Care Team (Latest Contact Info) Description 12/05/2021 6:25 AM REMEDIATION BIOANALYTICS CONSULTANT - 12/05/2021 8:17 AM REMEDIATION BIOANALYTICS CONSULTANT Hospital Encounter [facility] [address] [place] [address] Art Bledsoe MD [address] [facility] [address] [id number] Discharge Disposition: Home or Self Care (Routine Discharge) Social History Tobacco Use Types Packs/Day Years Used Date Smoking Tobacco: Former Smokeless Tobacco: Never Alcohol Use Standard Drinks/Week Comments Not Currently 0 (1 standard drink = 0.6 oz pur e alcohol) Sex and Gender Information Value Date Recorded Sex Assigned at Not on file Legal Sex Male 2:59 PM REMEDIATION BIOANALYTICS CONSULTANT Gender Identity Not on file Sexual Orientation Not on file COVID-19 Exposure Response Date Recorded In the last month, have you been in contact with someone who was confirmed or suspected to have Coronavirus / COVID-19? No / Unsure 12/05/2021 6:25 AM REMEDIATION BIOANALYTICS CONSULTANT documented as of this encounter Last Filed Vital Signs Vital Sign Reading Time Taken Comments Blood Pressure 128/67 12/05/2021 8:02 AM REMEDIATION BIOANALYTICS CONSULTANT Pulse 77 12/05/2021 8:02 AM REMEDIATION BIOANALYTICS CONSULTANT Temperature 36.2 ??C (97.1 ??F) 12/05/2021 7:09 AM CS T Respiratory Rate 18 12/05/2021 7:09 AM REMEDIATION BIOANALYTICS CONSULTANT Oxygen Saturation 97% 12/05/2021 8:02 AM REMEDIATION BIOANALYTICS CONSULTANT Inhaled Oxygen Concentration - - Weight 115.7 kg (255 lb) 12/05/2021 7:09 AM REMEDIATION BIOANALYTICS CONSULTANT Height 188 cm (6' 2 ) 12/05/2021 7:09 AM REMEDIATION BIOANALYTICS CONSULTANT Body Mass Index 32.74 12/05/2021 7:09 AM REMEDIATION BIOANALYTICS CONSULTANT documented in this encounter Discharge Instructions * Discharge Instructions* Ramiro Domingo RN - 12/05/2021 7:29 AM REMEDIATION BIOANALYTICS CONSULTANT [facility] POST-OP INSTRUCTIONS FOLLOWING [...] Ask you doctor. You must have a street flusher driver for the day of surgery and your 1st post op exam. 11. ALWAYS WERE SUNGLASSES WHEN YOU GO OUTSIDE. These are found in your surgery kit. Dr. Bledsoe OFFICE [phone] AFTER HOURS EMERGENCY [phone] DIATION BIOANALYTICS CONSULTANT * Attachments The following attachments cannot be sent through Care Everywhere. * Cataracts Discharge Instructions (Honduran) documented in this encounter Medications at Time [...] Art Bledsoe MD - 12/05/2021 7:29 AM REMEDIATION BIOANALYTICS CONSULTANT Sedation Pre-Evaluation Assessment Physical Exam DIATION BIOANALYTICS CONSULTANT * Op Note - Art Bledsoe MD - 12/05/2021 7:28 AM CST Date: 12/05/2021 Patient Name: Derick HollinsO.B.: 1955 Surgeon: ART BLEDSOE M.D. Preoperative [...] room in satisfactory condition. Art Bledsoe MD DIATION BIOANALYTICS CONSULTANT documented in this encounter Plan of Treatment Not on file documented as of this encounter Procedures Procedure Name Priority Date/Time Associated Diagnosis Comments REMV CATARACT EXTRACAP,INSERT LENS 12/05/2021 7:30 AM REMEDIATION BIOANALYTICS CONSULTANT H25.11 Special Needs 0630 documented in this [...] operative eye, Pre-Op Given 12/05/2021 7:14 AM REMEDIATION BIOANALYTICS CONSULTANT 1 drop Given 12/05/2021 7:02 AM REMEDIATION BIOANALYTICS CONSULTANT 1 drop Given 12/05/2021 6:55 AM REMEDIATION BIOANALYTICS CONSULTANT 1 drop BUpivacaine (PF) (MARCAINE) 0.5 % injection 0.1 mL 0.1 mL, Right Eye, Every 5 min, 3 doses, First dose on Sun12/05/21 at 0700, Last dose on Sun12/05/21 at 0710, Instill to operative eye, Pre-Op Given 12/05/2021 7:14 AM REMEDIATION BIOANALYTICS CONSULTANT 0.1 mLs Given 12/05/2021 7:03 AM REMEDIATION BIOANALYTICS CONSULTANT 0.1 mLs Given 12/05/2021 6:54 AM REMEDIATION BIOANALYTICS CONSULTANT 0.1 mLs flurbiprofen (OCUFEN) 0.03 % ophthalmic solution 1 drop 1 drop, Right Eye, Every 5 min, 3 doses, First dose on Sun12/05/21 at 0700, Last dose on Sun12/05/21 at 0710, Instill to operative eye, Pre-Op Given 12/05/2021 7:15 AM REMEDIATION BIOANALYTICS CONSULTANT 1 drop Given 12/05/2021 7:02 AM REMEDIATION BIOANALYTICS CONSULTANT 1 drop Given 12/05/2021 6:54 AM REMEDIATION BIOANALYTICS CONSULTANT 1 drop methazolAMIDE (NEPTAZANE) tablet 50 mg 50 mg, Oral, Once, 1 dose, On Sun12/05/21 at 0745, If NOT allergic to Sulfa, Post-Op Given 12/05/2021 8:06 AM REMEDIATION BIOANALYTICS CONSULTANT 50 m g phenylephrine (MYDFRIN) 2.5 % ophthalmic solution 1 drop 1 drop, Right Eye, Every 5 min, 3 doses, First dose on Sun12/05/21 at 0700, Last dose on Sun12/05/21 at 0710, Instill to operative eye, Pre-Op Given 12/05/2021 7:15 AM REMEDIATION BIOANALYTICS CONSULTANT 1 drop Given 12/05/2021 7:03 AM REMEDIATION BIOANALYTICS CONSULTANT 1 drop Given 12/05/2021 6:55 AM REMEDIATION BIOANALYTICS CONSULTANT 1 drop tropicamide (MYDRIACYL) 1 % ophthalmic solution 1 drop 1 drop, Right Eye, Every 5 min, 2 doses, First dose on Sun12/05/21 at 0700, Last dose on Sun12/05/21 at 0705, Instill to operative eye, Pre-Op Given 12/05/2021 7:03 AM REMEDIATION BIOANALYTICS CONSULTANT 1 drop Given 12/05/2021 6:55 AM REMEDIATION BIOANALYTICS CONSULTANT 1 drop documented in this encounter Active and Recently Administered Medications Times are shown in REMEDIATION BIOANALYTICS CONSULTANT. Scheduled Medication Order 12/03/2021 12/04/2021 12/05/2021 besifloxacin [...] at 0751, Until Sun12/05/21 at 0757, Intra-Op 075 (Given - Provid er: Art Bledsoe MD) msobmvsd-bramyrebye-zqsypbhxb (NEOSPORIN) ophthalmic ointment (CANCELED) As needed, Starting on Sun12/05/21 at 0751, Until Sun12/05/21 at 0757, Intra-Op 0751 (Given - Provid er: Art Bledsoe MD) povidone-iodine (BETADINE) 5 % ophthalmic solution (CANCELED) As needed, Starting on Sun12/05/21 at 0751, Until Sun12/05/21 at 0757, Intra-Op 0751 (Given - Provid er: Art Bledsoe MD) documented in this encounter Care Teams Prison Guard Relationship Specialty Start Date End Date Tin Chan MD [address] [place] [address] PCP - General FAMILY PRACTICE 10/03/21 documented as of this encounter
--- OUTSIDE RECORDS SUMMARY | 2024-10-23 22:54 | XMS_ITS | Encounter Summary ---
Author Organization [facility] Address [address] [place] [address]. [place], [place] [address] [place] [address] Care Team Providers Care Orange Picker Machine Operator Name Role Phone Tin Chan MD Primary Care Provider [phone] Encounter Details Date Type Department Care Team (Latest Contact Info) Description 12/05/2021 Travel Social History Tobacco Use Types Packs/Day Years Used Date Smoking Tobacco: Former Smokeless Tobacco: Never Alcohol Use Standard Drinks/Week Comments Not Currently 0 (1 standard drink = 0.6 oz pur e alcohol) Sex and Gender Information Value Date Recorded Sex Assigned at Not on file Legal Sex Male 2:59 PM COLOR MAKER Gender Identity Not on file Sexual Orientation Not on file COVID-19 Exposure Response Date Recorded In the last month, have you been in contact with someone who was confirmed or suspected to have Coronavirus / COVID-19? No / Unsure 12/05/2021 6:25 AM COLOR MAKER documented as of this encounter Plan of Treatment Not on file documented as of this encounter Visit Diagnoses Not on filedocumented in this encounter Care Teams Orange Picker Machine Operator Relationship Specialty Start Date End Date Tin Chan MD [address] [facility] [address] [place] [address] PCP - General FAMILY PRACTICE 10/03/21 documented as of this encounter
--- OUTSIDE RECORDS SUMMARY | 2024-10-23 22:54 | XMS_ITS | Encounter Summary ---
Author Organization [facility] Address [address] [place] [address]. [place], [place] [address] [place] [address] Care Team Providers Care Make Up Operator Helper Name Role Phone Tin Chan MD Primary Care Provider [phone] Encounter Details Date Type Department Care Team (Latest Contact Info) Description 10/03/2021 Travel Social History Tobacco Use Types Packs/Day Years Used Date Smoking Tobacco: Former Smokeless Tobacco: Never Alcohol Use Standard Drinks/Week Comments Not Currently 0 (1 standard drink = 0.6 oz pur e alcohol) Sex and Gender Information Value Date Recorded Sex Assigned at Not on file Legal Sex Male 2:59 PM HEAD REFRIGERATING ENGINEER Gender Identity Not on file Sexual Orientation Not on file COVID-19 Exposure Response Date Recorded In the last month, have you been in contact with someone who was confirmed or suspected to have Coronavirus / COVID-19? No / Unsure 10/03/2021 8:11 AM HEAD REFRIGERATING ENGINEER documented as of this encounter Plan of Treatment Not on file documented as of this encounter Visit Diagnoses Not on filedocumented in this encounter Care Teams Make Up Operator Helper Relationship Specialty Start Date End Date Tin Chan MD [address] [facility] [address] [place] [address] PCP - General FAMILY PRACTICE 10/03/21 documented as of this encounter
--- OUTSIDE RECORDS SUMMARY | 2024-10-23 22:54 | XMS_ITS | Clinical Summary ---
Author Organization [facility] Address [address] [place] [address]. [place] [address] [place] [address] Care Team Providers Care Vp Human Resources Name Role Phone Tin Chan MD Primary Care Provider [phone] Allergies Active Allergy Reactions Criticality Noted Date Comments Onion Contact Dermatitis Medium 09/23/2021 Medications aspirin EC (ASPIRIN EC) 81 MG tablet Take 81 mg by mouth daily. Active empagliflozin 25 MG tablet Take 25 mg by mouth daily. Active insulin glargine 100 UNIT/ML injection (PEN) Inject 20 Units into the skin nightly at bedtime. Active metFORMIN 1000 MG tablet Take 2,000 mg by mouth daily. Active omeprazole 10 MG capsule Take 10 mg by mouth daily. Active semaglutide 2 MG/1.5ML injection (PEN) Inject into the skin every 7 days. Active Active Problems No known active problems Social History Tobacco Use Types Packs/Day Years Used Date Smoking Tobacco: Former Smokeless Tobacco: Never Alcohol Use Standard Drinks/Week Comments Not Currently 0 (1 standard drink = 0.6 oz pur e alcohol) Sex and Gender Information Value Date Recorded Sex Assigned at Not on file Legal Sex Male 2:59 PM RECORDS MANAGEMENT MANAGER Gender Identity Not on file Sexual Orientation Not on file Last Filed Vital Signs Vital Sign Reading Time Taken Comments Blood Pressure 128/67 12/05/2021 8:02 AM RECORDS MANAGEMENT MANAGER Pulse 77 12/05/2021 8:02 AM RECORDS MANAGEMENT MANAGER Temperature 36.2 ??C (97.1 ??F) 12/05/2021 7:09 AM CS T Respiratory Rate 18 12/05/2021 7:09 AM RECORDS MANAGEMENT MANAGER Oxygen Saturation 97% 12/05/2021 8:02 AM RECORDS MANAGEMENT MANAGER Inhaled Oxygen Concentration - - Weight 115.7 kg (255 lb) 12/05/2021 7:09 AM RECORDS MANAGEMENT MANAGER Height 188 cm (6' 2 ) 12/05/2021 7:09 AM RECORDS MANAGEMENT MANAGER Body Mass Index 32.74 12/05/2021 7:09 AM RECORDS MANAGEMENT MANAGER Plan of Treatment Health Maintenance Due Date Last Done Comments Colorectal Cancer Screening Colonoscopy (10 Years) 1955 Hepatitis C 1973 DTaP, Tdap and Td Vaccines ( 1 - Tdap) 1974 RSV Immunization or 60+ Years (1 - 1-dose 60+ series) 2015 Annual Medicare Wellness Visit 2020 Pneumococcal Vaccine: 65+ Years (2 of 2 - PPSV23 or PCV20) 11/03/2021 11/03/2020 COVID-19 Vaccine (3 - 2023-2 5 season) 2024 12/24/2020, 12/03/2020 Influenza Adult (#1) 2024 06/30/2020, 08/14/2019, 07/26/2018 Zoster Vaccines Completed 08/31/2020, 06/30/2020 Meningococcal Vaccine Aged Out No greg efraín eligible based on patient's age to complete this topic RSV Immunizations Under 20 Months Aged Out No longer eligible b ased on patient's age to complete this topic Medical Devices Implanted Type Area Laboratory Equipment Cleaner Device Identifier Shelf Expiration Date Model / Serial / Lot [id number] Intraocular Lens (1-Piece) Implanted:Qty: 1 on 10/03/2021 by Art Small MD at [facility] Left: Eye 07/17/2024 [id number] / [id number] / Intraocular Lens Implanted:Qty: 1 on 12/05/2021 by Art Small MD at [facility] Right: Eye 09/18/2024 [id number] / [id number] / Insurance MEDICARE [employer] OPEN ACCESS [facility] Care Teams Vp Human Resources Relationship Specialty Start Date End Date Tin Chan MD [address] [place] [address] PCP - General FAMILY PRACTICE 10/03/21
== END 2024-10-19 10:25 | disposition home or self-care (01) ==
PROVIDERS: PCP Family Medicine; Visit Provider Family Medicine
DX: R10.9 Unspecified abdominal pain (principal); Z87.442 Personal history of urinary calculi
CPT/HCPCS: 74018